=== PATIENT | female | born 1995 | race Caucasian/White ===

== ENCOUNTER 2023-03-04 18:34 | Emergency (ER) | payer SELFPAY ==
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
[2023-03-04] MEDS ORDERED: ONDANSETRON 4 MG (ODT) TAB ONE (19:44)
--- NOTE | 2023-03-04 19:55 | RAD REPORT ---
EXAM DESCRIPTION: Lauro Single View03/04/2023 7:48 pm CLINICAL HISTORY: Cough COMPARISON: none FINDINGS: The lungs appear clear of acute infiltrate. The heart is normal size IMPRESSION: No acute abnormalities displayed
--- NOTE | 2023-03-04 20:00 | ER ---
Nurse's Notes [facility] Name: Genesis Mondragon Age: 27 yrs Sex: Female : 1995 Arrival Date: 03/04/2023 Time: 18:34 Bed 10 Private MD: Diagnosis: Influenza due to identified novel influenza A virus-B Presentation: 03/04 19:25 Chief complaint: Patient states: couigh congestion x 1 week nausea and vomiting began kl today emesis x 6. Coronavirus screen: Vaccine status: Patient reports receiving the 1st dose of the Covid vaccine. Ebola Screen: Patient negative for fever greater than or equal to 101.5 degrees Fahrenheit, and additional compatible Ebola Virus Disease symptoms. Initial Sepsis Screen: Does the patient meet any 2 criteria? No. Patient's initial sepsis screen is negative. Does the patient have a suspected source of infection? No. Patient's initial sepsis screen is negative. Risk Assessment: Do you want to hurt yourself or someone else? Patient reports no desire to harm self or others. 19:25 Method Of Arrival: Ambulatory 19:36 Acuity: ANASTASIYA 4 20:27 Onset of symptoms was March 04, 2023. cm10 Triage Assessment: 19:27 General: Appears uncomfortable, Behavior is cooperative, anxious. Pain: Complains of kl pain in body aches Pain currently is 9 out of 10 on a pain scale. GI: Pt is actively vomiting bile, Reports nausea, vomiting, since 5 pm today. 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 - Social history:: Smoking status: smokes marijuana. Screenin:26 [facility] ED Fall Risk Assessment (Adult) History of falling in the last 3 months, cm10 including since admission No falls in past 3 months (0 pts) Confusion or Disorientation No (0 pts) Intoxicated or Sedated No (0 pts) Impaired Gait No (0 pts) Mobility Assist Device Used No (0 pt) Altered Elimination No (0 pt) Score/Fall Risk Level 0 - 2 = Low Risk Oriented to surroundings, Maintained a safe environment, Hourly rounding (assess needs \T\ fall precautionary measures) done. Abuse screen: Denies threats or abuse. Denies injuries from another. Nutritional screening: No deficits noted. Tuberculosis screening: No symptoms or risk factors identified. Assessment: 20:16 Reassessment: Pt able to tolerate PO challenge. cm10 Vital Signs: 19:25 BP 129 / 89; Pulse 98; Resp 16; Temp 98.3(TE); Pulse Ox 98% ; Weight 72.57 kg; Height 5 kl ft. 0 in. ; 19:25 Body Mass Index 31.25 (72.57 kg, 152.4 cm) ED Course: 18:37 Patient arrived in ED. mr 18:37 [facility] Mc[facility]hon [facility]C [facility] kb 18:37 Tarik Aparicio MD is Attending Physician. kb 19:26 Triage completed. kl 19:36 COVID-19 SARS RT PCR Sent. kl 19:36 Flu Sent. kl 19:47 Chest Single View XRAY In Process Unspecified. EDMS 20:06 Bonita Sierra, RN is Primary Nurse. cm10 20:26 No provider procedures requiring assistance completed. Patient did not have IV access cm10 during this emergency room visit. 20:26 Patient has correct armband on for positive identification. Provided Education on: ER cm10 process and procedures.. 20:27 Arm band placed on. cm10 Administered Medications: 19:36 Drug: Ondansetron Oral Disintegrating Tablet Oral Disintegrating Tablet 4 mg PO once kl Route: PO; 20:27 Follow up: Response: No adverse reaction; Vomiting decreased cm10 Medication: 20:26 VIS not applicable for this client. cm10 Outcome: 19:59 Discharge ordered by . kb 20:27 Discharged to home ambulatory, with family, cm10 20:27 Condition: good 20:27 Discharge instructions given to patient, Instructed on discharge instructions, follow up and referral plans. medication usage, Demonstrated understanding of instructions, follow-up care, medications, Prescriptions given X 1, 20:28 Patient left the ED. cm10 Signatures: Dispatcher [employer] EDMS Jenna Mcmahon FNP-C FNP-Ckb Lewis, Kimberly, RN RN Dee Katz, Reg Reg mr Bonita Sierra, RN RN cm10 Corrections: (The following items were deleted from the chart) 19:36 19:25 Acuity: ANASTASIYA 3 kl kl
--- NOTE | 2023-03-04 20:00 | EDPHYS ---
Physician Documentation [facility] Name: Genesis Mondragon Age: 27 yrs Sex: Female : 1995 Arrival Date: 03/04/2023 Time: 18:34 Bed 10 Private MD: ED Physician Tarik Aparicio HPI: 03/04 19:37 This 27 yrs old Female presents to ER via Ambulatory with complaints of Flu Symptoms. kb 19:37 Patient is a 27-year-old female with no medical history who presents for cough, kb congestion and body aches that started 1 week ago with nausea and vomiting that started today. Denies fever.. 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 - Social history:: Smoking status: smokes marijuana. ROS: 19:37 Cardiovascular: Negative for chest pain, palpitations, and edema, kb 19:37 Constitutional: Positive for body aches, malaise, 19:37 ENT: Positive for rhinorrhea, sinus congestion, 19:37 Respiratory: Positive for cough, 19:37 Abdomen/GI: Positive for nausea and vomiting, Negative for abdominal pain, 19:37 All other systems are negative, Exam: 19:37 Constitutional: This is a well developed, well nourished patient who is awake, alert, kb and in no acute distress. Head/Face: Normocephalic, atraumatic. ENT: Moist Mucous membranes Cardiovascular: Regular rate Respiratory: Respirations even and unlabored. No increased work of breathing. Talking in full sentences Abdomen/GI: Soft, non-tender. No distention Skin: Warm, dry with normal turgor. Normal color. MS/ Extremity: Pulses equal, no cyanosis. Neurovascular intact. Full, normal range of motion. Neuro: Awake and alert, GCS 15, oriented to person, place, time, and situation. Moves all extremities. Normal gait. Vital Signs: 19:25 BP 129 / 89; Pulse 98; Resp 16; Temp 98.3(TE); Pulse Ox 98% ; Weight 72.57 kg; Height 5 kl ft. 0 in. ; 19:25 Body Mass Index 31.25 (72.57 kg, 152.4 cm) MDM: 18:37 Patient medically screened. kb 19:37 Differential Diagnosis: Pneumonia Other Flu, COVID, URI. Data reviewed: vital signs, kb nurses notes. 19:56 Counseling: I had a detailed discussion with the patient and/or guardian regarding the kb historical points, exam findings, and any diagnostic results supporting the discharge/admit diagnosis, lab results, radiology results, the need for outpatient follow up, a family practitioner, to return to the emergency department if symptoms worsen or persist or if there are any questions or concerns that arise at home. 03/04 18:53 Order name: Flu; Complete Time: 19:54 kb 03/04 18:53 Order name: COVID-19 SARS RT PCR; Complete Time: 20:17 kb 03/04 18:53 Order name: Chest Single View XRAY; Complete Time: 19:55 kb 03/04 19:56 Order name: PO challenge; Complete Time: 20:16 kb Administered Medications: 19:36 Drug: Ondansetron Oral Disintegrating Tablet Oral Disintegrating Tablet 4 mg PO once kl Route: PO; 20:27 Follow up: Response: No adverse reaction; Vomiting decreased cm10 Disposition Summary: 03/04/23 19:59 Discharge Ordered Notes: Location: Home kb Condition: Stable kb Diagnosis - Influenza due to identified novel influenza A virus - B kb Followup: kb - With: Emergency Department - When: As needed - Reason: Worsening of condition Followup: kb - With: Private Physician - When: 2 - 3 days - Reason: Recheck today's complaints, Continuance of care, Re-evaluation by your physician Discharge Instructions: - Discharge Summary Sheet kb - Influenza, Adult, [id number] kb Forms: - Medication Reconciliation Form kb - Thank You Letter kb - Antibiotic Education kb - Prescription Opioid Use kb - Patient Portal Instructions kb - Leadership Thank You Letter Prescriptions: - ondansetron 4 mg Oral Tablet,disintegrating - take 1 tablet ORAL route every 6 hours As needed; 12 tablet; Refills: 0, kb Product Selection Permitted Signatures: Dispatcher [employer] Jenna Fischer, SUPERVISOR SHEARING-C SUPERVISOR SHEARING-Ckb Tommy, Betsy, RN RN kl Rigo, Bonita RN cm10
== END 2023-03-04 20:28 | disposition home or self-care (01) ==
LOC: ER 18:34
DX: J10.1 Influenza due to other identified influenza virus with other respiratory manifestations (principal); Z11.52 Encounter for screening for COVID-19
CPT/HCPCS: 71045; 87635; 87804; 99283; Q0162

== ENCOUNTER 2024-03-22 17:57 | Emergency (ER) | payer SELFPAY ==
--- OUTSIDE RECORDS SUMMARY | 2024-03-22 18:01 | XMS REPORT | Continuity of Care Document ---
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 1.2 % BASO % (test code = 706-2) 0.4 % GRAN MAT x10^3(ANC) (test code = 3147875546) 7.14 10*3/uL 1.88-7.09 H IMM GRAN x10^3 (test code = 9392873888) 0.03 10*3/uL 0-0.06 LYMPH x10^3 (test code = 731-0) 1.42 10*3/uL 1.32-3.29 MONO x10^3 (test code = 742-7) 0.73 10*3/uL 0.33-0.92 EOS x10^3 (test code = 711-2) 0.11 10*3/uL 0.03-0.39 BASO x10^3 (test code = 704-7) 0.04 10*3/uL 0.01-0.07 Lab Interpretation (test code = 90558-0) Abnormal [facility]POCT [id number] 01:09:00* Test Item Value Reference Range Interpretation Comme nts POCT PREG (test code = 1605) NEGATIVE On board controls acceptable with C Line (test code = 3574) positive POCT PREG LOT # (test code = 3575) [id number] POCT PREG TEST DATE ( test code = 3576) 12/30/20 Lab Interpretation (test cod e = 54344-8) Normal [facility]
--- NOTE | 2024-03-22 18:46 | RAD REPORT ---
EXAMINATION: CT HEAD WITHOUT CONTRAST CLINICAL INDICATION: Female, 28 years old.right ear and posterior ear pain TECHNIQUE: Axial CT images from the skull base to the vertex without intravenous contrast. Coronal an d sagittal reformatted images were created from the data set. One or more of the following dose reduction techniques were used: Automated exposure control, adjustment of the mA and/or kV according to patient size, and/or iterative reconstruction. Unless otherwise specified, incidental findings do not require dedicated imaging follow-up. [id number]. COMPARISON: No prior exam. FINDINGS: INTRACRANIAL: No acute intracranial hemorrhage. No hydrocephalus. No mass effect or midline shift. No significant white matter disease VASCULATURE: No visualized abnormalities in the arteries or dural venous sinuses. SCALP/SKULL: No significant soft tissue or osseous abnormalities. SINUSES: A few ethmoid air cells are opacified. No mastoid effusion. IMPRESSION: No acute intracranial abnormality.
[2024-03-22] MEDS ORDERED: ACETAMINOPHEN 500 MG TAB ONE (19:15)
[2024-03-22] MEDS ORDERED: KETOROLAC 30 MG/ML INJ ONE (19:15)
[2024-03-22] MEDS ORDERED: dexAMETHasone 10 MG/ML VIAL ONE (19:15)
--- NOTE | 2024-03-22 19:30 | ER ---
Nurse's Notes [facility] Name: Genesis Muhammad Age: 28 yrs Sex: Female : 1995 Arrival Date: 03/22/2024 Time: 17:57 Bed 12 Private MD: Diagnosis: Otalgia, right ear Presentation: 03/22 18:16 Chief complaint: Patient states: left ear pain for 4 months. Coronavirus screen: At iw this time, the client does not indicate any symptoms associated with coronavirus-19. Ebola Screen: No symptoms or risks identified at this time. Initial Sepsis Screen: Does the patient meet any 2 criteria? No. Patient's initial sepsis screen is negative. Does the patient have a suspected source of infection?. Risk Assessment: Do you want to hurt yourself or someone else? Patient reports no desire to harm self or others. Onset of symptoms was December 2023. 18:16 Method Of Arrival: Ambulatory iw 18:16 Acuity: ANASTASIYA 3 iw SERVICE ASSISTANT: 19:43 Not vc1 Historical: - Allergies: 18:17 No Known Allergies; iw - Home Meds: 18:17 None [Active]; iw - PMHx: 18:17 None; iw - PSHx: 18:17 Appendectomy; iw - Immunization history:: Adult Immunizations not up to date. - Infectious Disease History:: Denies. - Social history:: Smoking status: Patient uses street drugs, marijuana. Screenin:41 [facility] ED Fall Risk Assessment (Adult) History of falling in the last 3 months, vc1 including since admission No falls in past 3 months (0 pts) Confusion or Disorientation No (0 pts) Intoxicated or Sedated No (0 pts) Impaired Gait No (0 pts) Mobility Assist Device Used No (0 pt) Altered Elimination No (0 pt) Score/Fall Risk Level 0 - 2 = Low Risk Oriented to surroundings, Maintained a safe environment, Assessed \T\ reinforced patient's understanding of fall precautions, Hourly rounding (assess needs \T\ fall precautionary measures) done. Abuse screen: Denies threats or abuse. Nutritional screening: No deficits noted. Tuberculosis screening: No symptoms or risk factors identified. Assessment: 19:41 General: Appears in no apparent distress. uncomfortable, Behavior is calm, cooperative, vc1 appropriate for age. Pain: Complains of pain in right ear Pain does not radiate. Pain currently is 7 out of 10 on a pain scale. Neuro: Level of Consciousness is awake, alert, obeys commands, Oriented to person, place, time, situation. Cardiovascular: Patient's skin is warm and dry. Respiratory: Airway is patent Respiratory effort is even, unlabored. GI: No signs and/or symptoms were reported involving the gastrointestinal system. : No signs and/or symptoms were reported regarding the genitourinary system. EENT: Reports pain in right ear. Derm: No signs and/or symptoms reported regarding the dermatologic system. Musculoskeletal: No signs and/or symptoms reported regarding the musculoskeletal system. Vital Signs: 18:16 BP 126 / 104; Pulse 89; Resp 16; Temp 97.9; Pulse Ox 100% on R/A; Weight 72.57 kg; iw Height 5 ft. 0 in. ; Pain 6/10; 18:16 Body Mass Index 31.25 (72.57 kg, 152.4 cm) iw 18:16 Pain Scale: Adult iw ED Course: 17:59 Patient arrived in ED. jj6 18:00 Tarik Crocker PA is PHCP. cp 18:00 Tarik Aparicio MD is Attending Physician. cp 18:16 Triage completed. iw 18:17 Arm band placed on. iw 18:39 CT Head Brain wo Cont In Process Unspecified. EDMS 19:19 Bina Hanson, RN is Primary Nurse. vc1 19:29 Sherry Cid MD is Referral Physician. cp 19:41 Bed in low position. Call light in reach. Side rails up X 1. Provided Education on: ear vc1 pain. 19:41 No provider procedures requiring assistance completed. Patient did not have IV access vc1 during this emergency room visit. Administered Medications: 19:23 Drug: Acetaminophen PO 1000 mg PO once Route: PO; vc1 19:44 Follow up: Response: No adverse reaction; Pain is decreased vc1 19:24 Drug: Ketorolac IM 30 mg IM once Route: IM; Site: right ventrogluteal; vc1 19:44 Follow up: Response: No adverse reaction; Pain is decreased vc1 19:24 Drug: Dexamethasone IM 10 mg IM once Route: IM; Site: right ventrogluteal; vc1 19:44 Follow up: Response: No adverse reaction vc1 Medication: 19:41 VIS not applicable for this client. vc1 Outcome: 19:30 Discharge ordered by . cp 19:41 Discharged to home ambulatory, vc1 19:41 Condition: stable 19:41 Discharge instructions given to patient, family, Instructed on discharge instructions, follow up and referral plans. medication usage, Demonstrated understanding of instructions, follow-up care, medications, Prescriptions given X 3, 19:44 Patient left the ED. vc1 Signatures: Dispatcher [employer] EDKeiry Zaragoza RN RN iw Tarik Crocker PA PA Piper Vitale jj6 Bina Hanson RN RN vc1 Corrections: (The following items were deleted from the chart) 18:17 18:16 Chief complaint: Patient states: left ear pain on and off for months christian gonzales
--- NOTE | 2024-03-22 19:30 | EDPHYS ---
Physician Documentation [facility] Name: Genesis Muhammad Age: 28 yrs Sex: Female : 1995 Arrival Date: 03/22/2024 Time: 17:57 Bed 12 Private MD: ED Physician Tarik Aparicio HPI: 03/22 18:16 This 28 yrs old Female presents to ER via Unassigned with complaints of Ear Pain. cp 18:16 The patient presents with pain, a " 6" out of "10". The complaints affect the right cp ear. Onset: The symptoms/episode began/occurred 4 month(s) ago. Associated signs and symptoms: Pertinent positives: pain behind ear. 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 - Infectious Disease History:: Denies. - Social history:: Smoking status: Patient uses street drugs, marijuana. ROS: 18:20 ENT: Positive for ear pain, Negative for drainage from ear(s), sinus congestion, sinus cp pain, sore throat, difficulty swallowing, difficulty handling secretions, 18:20 Eyes: Negative for injury, pain, redness, and discharge, cp 18:20 Constitutional: Negative for body aches, chills, fever, poor PO intake, 18:20 Respiratory: Negative for cough, shortness of breath, wheezing, 18:20 Skin: Negative for rash, 18:20 Neuro: Positive for headache, Negative for altered mental status, dizziness, weakness, 18:20 All other systems are negative, Exam: 18:25 Constitutional: The patient appears in no acute distress, alert, awake, non-toxic, well cp developed, well nourished, uncomfortable, 18:25 Head/Face: Normocephalic, atraumatic. No sinus tenderness to palpation cp 18:25 Eyes: Periorbital structures: appear normal, Conjunctiva: normal, no exudate, no injection, Sclera: no appreciated abnormality, Lids and lashes: appear normal, bilaterally, 18:25 ENT: External ear(s): pain with movement, that is moderate, of the pinna of right ear, Ear canal(s): are normal, clear, TM's: dullness, bilaterally, Nose: is normal, Mouth: Lips: moist, Oral mucosa: pink and intact, moist, Posterior pharynx: Airway: no evidence of obstruction, patent, Tonsils: are normal in appearance, erythema, is not appreciated, exudate, is not appreciated, 18:25 Neck: ROM/movement: is normal, is supple, without pain, no range of motions limitations, 18:25 Chest/axilla: Inspection: normal, 18:25 Cardiovascular: Rate: normal, 18:25 Respiratory: the patient does not display signs of respiratory distress, Respirations: normal, no use of accessory muscles, no retractions, labored breathing, is not present, Breath sounds: are clear throughout, no decreased breath sounds, no stridor, no wheezing, 18:25 Abdomen/GI: Inspection: abdomen appears normal, Palpation: abdomen is soft and non-tender, in all quadrants, 18:25 Skin: cellulitis, is not appreciated, no rash present. 18:25 Neuro: Orientation: to person, place \\T\\ time. Mentation: is normal, Motor: moves all fours, strength is normal, Gait: is steady, at a normal pace, without difficulty, Vital Signs: 18:16 BP 126 / 104; Pulse 89; Resp 16; Temp 97.9; Pulse Ox 100% on R/A; Weight 72.57 kg; iw Height 5 ft. 0 in. ; Pain 6/10; 18:16 Body Mass Index 31.25 (72.57 kg, 152.4 cm) iw 18:16 Pain Scale: Adult iw MDM: 18:19 Medical Screening Exam initiated cp 19:30 Data reviewed: vital signs, nurses notes, radiologic studies, CT scan, and as a result, cp I will discharge patient. 19:30 Differential diagnosis: otitis media, otitis externa, ruptured TM, foreign body, acute cp otalgia, cerumen impaction, barotrauma . I considered the following discharge prescriptions or medication management in the emergency department Medications were administered in the Emergency Department. See MAR. Counseling: I had a detailed discussion with the patient and/or guardian regarding the historical points, exam findings, and any diagnostic results supporting the discharge/admit diagnosis, radiology results, to return to the emergency department if symptoms worsen or persist or if there are any questions or concerns that arise at home. 03/22 18:19 Order name: CT Head Brain wo Cont; Complete Time: 18:51 cp 03/22 18:51 Interpretation: Report reviewed. cp Administered Medications: 19:23 Drug: Acetaminophen PO 1000 mg PO once Route: PO; vc1 19:44 Follow up: Response: No adverse reaction; Pain is decreased vc1 19:24 Drug: Ketorolac IM 30 mg IM once Route: IM; Site: right ventrogluteal; vc1 19:44 Follow up: Response: No adverse reaction; Pain is decreased vc1 19:24 Drug: Dexamethasone IM 10 mg IM once Route: IM; Site: right ventrogluteal; vc1 19:44 Follow up: Response: No adverse reaction vc1 Disposition Summary: 03/22/24 19:30 Discharge Ordered Notes: Location: Home cp Problem: an ongoing problem cp Symptoms: have improved cp Condition: Stable cp Diagnosis - Otalgia, right ear cp Followup: cp - With: Sherry Cid MD - When: 2 - 3 days - Reason: Recheck today's complaints Discharge Instructions: - Discharge Summary Sheet cp - Earache, Adult cp Forms: - Medication Reconciliation Form cp - Antibiotic Education cp - Prescription Opioid Use cp - Patient Portal Instructions cp - Leadership Thank You Letter cp Prescriptions: - Anaprox DS 550 mg Oral Tablet - take 1 tablet ORAL route every 12 hours As needed; 20 tablet; Refills: 0, cp Product Selection Permitted - Zyrtec-D 5-120 mg Oral Tablet Sustained Release 12 hr - take 1 tablet ORAL route every 12 hours As needed; 20 tablet; Refills: 0, cp Product Selection Permitted - Medrol (Mikel) 4 mg Oral Tablets, Dose Pack - take 1 tablet ORAL route as directed - follow package instructions; 1 packet; cp Refills: 0, Product Selection Permitted Addendum: 03/27/2024 12:47 Co-signature as Attending Physician, Tarik Aparicio MD I agree with the assessment and c chairez plan of care. Signatures: Dispatcher [employer] Tarik Wilkinson MD MD cha Williams, Irene, RN RN iw Page, Corey, PA PA cp Calcote, Vanessa, RN RN vc1 Corrections: (The following items were deleted from the chart) 03/22 18:19 18:19 Head Brain Wo Cont+CT.RAD.BRZ ordered. EDMS EDMS
[2024-03-22 19:49] VITALS: BP 126/104; TEMP 97.9; O2SAT 100
== END 2024-03-22 19:44 | disposition home or self-care (01) ==
LOC: ER 17:57
DX: H92.01 Otalgia, right ear (principal)
CPT/HCPCS: 70450; 96372; 99284; J1100